=== PATIENT | female | born 1950 | race Caucasian/White ===

== ENCOUNTER → 2019-09-16 | Day surgery (SDC) | payer MEDICARE, BC ==
[~2019-09-16] MED LIST: ACETAMINOPHEN 325 MG TABLET PO PRN; ALBUTEROL SULFATE 2.5 MG/3 ML NEBU. NEB PRN; ATOR20TA PO; ATROPINE 0.5 MG/5 ML DISP.SYRIN. IV PRN; BALANCED SALT IRRIG OPHTH SOLN 15 ML BOTTLE. IRR ONE; CATARACT OPHTH GEL 0.5 ML SYRINGE. OS ONE; CHONDROIT-SOD-HYALURONATE KIT. OS ONE; EPINEPHrine AMPULE 0.5 MG in BALANCED SALT IRRIG SOLN PLUS 500 ML IO ONE; ERYTHROMYCIN 0.5% OPHTH OINTMENT 1GM TUBE. OS ONE; FEXO1TAB27 PO; HYALURONIDASE 75UNITS in LIDOCAINE 2% PF OPHTH 10 ML SYRINGE. OS ONE; IV RINGERS SOLUTION,LACTATED 1,000 ML IV SCH; KETO5DRO OS; KETOROLAC TROMETHAMINE 0.5% OPHTH SOLUTION BOTTLE. ONE; KETOROLAC TROMETHAMINE 0.5% OPHTH SOLUTION BOTTLE. OS SCH; LANS15CA78 PO; LIDO/EPI IN BSS OPHTH 8 ML SYRINGE OD SCH; MOXI3DRO18 OS; MOXIFLOXACIN 0.5% OPHTH SOLUTION 3ML BOTTLE. OS SCH; MULT-650 PO; OMEG1CAP50 PO; ONDANSETRON PF 4 MG/2 ML VIAL. IV PRN; POVIDONE-IODINE 5% OPHTH SOLUTION 30ML BOTTLE. OS ONE; PRED5DRO20 OS; PROPOFOL 20 ML IV ONE; SIMV20TA18 PO; TETRACAINE 0.5% OPHTH SOLUTION 4ML BOTTLE. OS ONE; TETRACAINE 0.5% OPHTH SOLUTION 4ML BOTTLE. OU ONE; diphenhydrAMINE 50 MG/ML VIAL IV PRN; prednisoLONE ACETATE 1% OPHTH SUSPENSION 5ML BOTTLE. ONE; prednisoLONE ACETATE 1% OPHTH SUSPENSION 5ML BOTTLE. OS SCH
[2019-09-16] MEDS: MOXIFLOXACIN 0.5% OPHTH SOLUTION 3ML BOTTLE. OS SCH ×3 (10:21→10:31)
--- NOTE | 2019-09-16 11:01 | PDOC4 ---
CATARACT Operative Report DATE DATE: 09/16/19 TIME: 11:00 Operation Performed OPERATIVE REPORT Name: Jona Jimenez Operation Date: Preoperative Diagnosis: 1. Senile cataract, LEFTeye. 2. Inadequate pupillary dilation. Postoperative Diagnosis: 1. Senile cataract, LEFT:eye. 2. Inadequate pupillary dilation. Operation: 1. Phacoemulsification with posterior chamber intraocular lens implant. 2. Iris stretching via placement of Malyugan ring. Surgeon: Chantel Melendez D.O. Anesthesia: Local with monitored anesthesia care Description of Operation: Under cardiac monitoring and mild IV sedation, the patient received peribulbar anesthesia in the holding area. Pressure was applied to the eye with a Hon[place] balloon for approximately 10 minutes. The patient was taken to the operating room and placed in a supine position and the periorbital region was prepped and draped in the usual sterile fashion. A lid speculum was placed between the eyelids. A temporal clear corneal incision was made with a keratome. 1 cc of epi-Shugarcaine was injected into the anterior chamber. Viscoelastic was injected into the eye. A side port incision was made three clock hours to the left of the clear corneal incision. Due to continued poor dilation not responsive to epi-Shugarcaine, a Malyugan ring was placed. A cystotome and capsule forceps were used to make a continuous tear capsulorhexus. Hydrodissection was performed with balanced salt solution. The phacoemulsification needle was placed into the eye and the cataract was removed. The remaining cortical material was removed with the irrigation and aspiration apparatus. The posterior capsule was noted to be clean and intact. Viscoelastic was injected into the eye inflating the capsular bag. A foldable intraocular lens was injected into the eye, unfolding as desired, and positioned in the capsular bag. The Malyugan ring was then removed from the eye. The viscoelastic was aspirated from the eye. The wound edges were hydrated with balanced salt solution. There were no wound leaks. Viscoelastic was injected over the side port and clear corneal incisions. One drop of Vigamox and one drop of prednisolone acetate were instilled into the eye. The lid speculum was removed and a pressure dressing with a Joshua shield was placed over the eye. The patient was taken to the recovery room in good condition. KIN MELENDEZ DO Sep 16, 2019 11:01
[2019-09-16 11:15] VITALS: BP 141/79
== END | disposition home or self-care (01) ==
LOC: SURG 08:22
PROVIDERS: ATTEND Ophthalmology
DX: H25.12 Age-related nuclear cataract, left eye (principal); K21.9 Gastro-esophageal reflux disease without esophagitis; F41.9 Anxiety disorder, unspecified; E78.00 Pure hypercholesterolemia, unspecified; Z87.39 Personal history of other diseases of the musculoskeletal system and connective tissue; Z98.890 Other specified postprocedural states; Z87.891 Personal history of nicotine dependence; Z72.89 Other problems related to lifestyle; Z88.0 Allergy status to penicillin
CPT/HCPCS: 66982; J0171; J2704; V2632

== ENCOUNTER → 2019-09-30 | Day surgery (SDC) | payer MEDICARE, BC ==
[~2019-09-30] MED LIST changes: -ACETAMINOPHEN 325 MG TABLET PO PRN; +CATARACT OPHTH GEL 0.5 ML SYRINGE. OD ONE; -CATARACT OPHTH GEL 0.5 ML SYRINGE. OS ONE; +CHONDROIT-SOD-HYALURONATE KIT. OD ONE; -CHONDROIT-SOD-HYALURONATE KIT. OS ONE; +ERYTHROMYCIN 0.5% OPHTH OINTMENT 1GM TUBE. OD ONE; -ERYTHROMYCIN 0.5% OPHTH OINTMENT 1GM TUBE. OS ONE; +HYALURONIDASE 75UNITS in LIDOCAINE 2% PF OPHTH 10 ML SYRINGE. OD ONE; -HYALURONIDASE 75UNITS in LIDOCAINE 2% PF OPHTH 10 ML SYRINGE. OS ONE; +KETOROLAC TROMETHAMINE 0.5% OPHTH SOLUTION BOTTLE. OD SCH; -KETOROLAC TROMETHAMINE 0.5% OPHTH SOLUTION BOTTLE. OS SCH; +LIDO/EPI IN BSS OPHTH 8 ML SYRINGE ONE; +MOXIFLOXACIN 0.5% OPHTH SOLUTION 3ML BOTTLE. OD SCH; -MOXIFLOXACIN 0.5% OPHTH SOLUTION 3ML BOTTLE. OS SCH; +NALOXONE 0.4 MG/ML VIAL. IV PRN; +POVIDONE-IODINE 5% OPHTH SOLUTION 30ML BOTTLE. OD ONE; -POVIDONE-IODINE 5% OPHTH SOLUTION 30ML BOTTLE. OS ONE; +TETRACAINE 0.5% OPHTH SOLUTION 4ML BOTTLE. OD ONE; -TETRACAINE 0.5% OPHTH SOLUTION 4ML BOTTLE. OS ONE; +prednisoLONE ACETATE 1% OPHTH SUSPENSION 5ML BOTTLE. OD SCH; -prednisoLONE ACETATE 1% OPHTH SUSPENSION 5ML BOTTLE. OS SCH
[2019-09-30] MEDS: MOXIFLOXACIN 0.5% OPHTH SOLUTION 3ML BOTTLE. OD SCH ×2 (09:52→09:55)
--- NOTE | 2019-09-30 10:41 | PDOC4 ---
CATARACT Operative Report DATE DATE: 09/30/19 TIME: 10:38 Operation Performed OPERATIVE REPORT Name: Jona Jimenez Operation Date: Preoperative Diagnosis: 1. Senile cataract, RIGHT eye. 2. Inadequate pupillary dilation. Postoperative Diagnosis: 1. Senile cataract, RIGHT eye. 2. Inadequate pupillary dilation. Operation: 1. Phacoemulsification with posterior chamber intraocular lens implant. 2. Iris stretching via placement of Malyugan ring. Surgeon: Chantel Melendez D.O. Anesthesia: Local with monitored anesthesia care Description of Operation: After discussing the risks, complications, and alternatives, including but not limited to infection, diplopia, ptosis, anesthetic risk, retinal detachment, bleeding, capsule rupture, even vision loss, under cardiac monitoring and mild IV sedation, the patient received peribulbar anesthesia in the holding area. Pressure was applied to the eye with a [place] balloon for approximately 10 minutes. The patient was taken to the operating room and placed in a supine position and the periorbital region was prepped and draped in the usual sterile fashion. A lid speculum was placed between the eyelids. A temporal clear corneal incision was made with a keratome. 1 cc of epi-Shugarcaine was injected into the anterior chamber. Viscoelastic was injected into the eye. A side port incision was made three clock hours to the left of the clear corneal incision. Due to continued poor dilation not responsive to epi-Shugarcaine, a Malyugan ring was placed. A cystotome and capsule forceps were used to make a continuous tear capsulorhexus. Hydrodissection was performed with balanced salt solution. The phacoemulsification needle was placed into the eye and the cataract was removed. The remaining cortical material was removed with the irrigation and aspiration apparatus. The posterior capsule was noted to be clean and intact. Viscoelastic was injected into the eye inflating the capsular bag. A foldable i ntraocular lens was injected into the eye, unfolding as desired, and positioned in the capsular bag. The Malyugan ring was then removed from the eye. The viscoelastic was aspirated from the eye. The wound edges were hydrated with balanced salt solution. There were no wound leaks. Viscoelastic was injected over the side port and clear corneal incisions. One drop of Vigamox and one drop of prednisolone acetate were instilled into the eye. The lid speculum was removed and a pressure dressing with a Joshua shield was placed over the eye. The patient was taken to the recovery room in good condition. KIN MELENDEZ DO Sep 30, 2019 10:40
[2019-09-30 10:42] VITALS: BP 144/77
== END | disposition home or self-care (01) ==
LOC: SURG 08:34
PROVIDERS: ATTEND Ophthalmology
DX: H25.11 Age-related nuclear cataract, right eye (principal); K21.9 Gastro-esophageal reflux disease without esophagitis; E66.9 Obesity, unspecified; Z68.32 Body mass index [BMI] 32.0-32.9, adult; Z87.891 Personal history of nicotine dependence; Z98.890 Other specified postprocedural states; Z87.39 Personal history of other diseases of the musculoskeletal system and connective tissue; Z72.89 Other problems related to lifestyle
CPT/HCPCS: 66982; J0171; J2704; V2632